=== PATIENT | female | born 1960 | race African-American/Black ===

== ENCOUNTER 2019-05-04 04:51 | Inpatient (IN) | payer OTHER ==
[~2019-05-04] VITALS: Ht 165.1 cm; Wt 103.4 kg
[2019-05-04 05:41] VITALS: BP 120/71
[2019-05-04] MEDS ORDERED: ANESTHESIA TRAY IN PYXIS 1 EA TRAY MC ONE (05:57)
--- NOTE | 2019-05-04 06:15 | NUR ---
RN NOTES 0505 PATIENT CAME FROM ADMITTING AMBULATORY. ALERT AND VERBALLY RESPONSIVE. ASSISTED TO ROOM. ORIENTED TO PHYSICAL SET UP. CONSENT SIGNED; CHECKLIST DONE. V/S TAKEN. G20 INSERTED BY Lilo ACOSTA TO [facility] WITH GOOD BLOOD RETURN. CALL LIGHT WITHIN REACH. 0620 OR TOOK PATIENT BY BED
[2019-05-04] MEDS ORDERED: oxyCODONE IR immediate release 5 MG PO PRN ×2 (06:30)
[2019-05-04] MEDS ORDERED: ACETAMINOPHEN 325 MG TABLET PO PRN ×2 (06:30)
[2019-05-04] MEDS ORDERED: CELECOXIB 100 MG CAPSULE PO SCH ×2 (06:30)
[2019-05-04] MEDS ORDERED: HYDROMORPHONE INJ 2 MG/ML DISP.SYRIN ONE (06:49)
[2019-05-04] MEDS ORDERED: ROCURONIUM BROMIDE 50 MG/5 ML ONE (06:49)
[2019-05-04] MEDS ORDERED: BACITRACIN 50000 UNITS/VIAL ONE (07:21)
[2019-05-04] MEDS ORDERED: FENTANYL PF 100MCG/2ML AMPUL ONE (08:29)
[2019-05-04] MEDS ORDERED: COLACE 250 MG CAPSULE PO PRN (09:00)
[2019-05-04] MEDS ORDERED: TRANEXAMIC ACID 3,000 MG in SODIUM CHLORIDE IRRIG SOLUTION 70 ML IR ONE (09:00)
[2019-05-04] MEDS ORDERED: TYLENOL 650 MG TABLET PO PRN (09:00)
[2019-05-04] MEDS ORDERED: ANCEF 1 G in IV D5W 50 ML IV SCH (09:00)
[2019-05-04] MEDS ORDERED: AMBIEN 5 MG TABLET PO PRN (09:00)
[2019-05-04] MEDS ORDERED: HYDROCODONE/APAP 5/325MG 1 EACH TABLET PO PRN ×2 (09:00)
[2019-05-04] MEDS ORDERED: DULCOLAX 10 MG/SUPP.RECT RC PRN (09:00)
[2019-05-04] MEDS ORDERED: SENOKOT 8.6 MG TABLET PO PRN (09:00)
[2019-05-04] MEDS ORDERED: HYDR-4076 PO (09:43)
[2019-05-04] MEDS ORDERED: ASPI-605 PO (09:43)
[2019-05-04] MEDS: HYDROMORPHONE 1 MG/1 ML DISP.SYRIN IV PRN ×4 (11:13→23:03)
[2019-05-04] MEDS: IV 1/2NS 1000 ML 1,000 ML IV PRN (11:34)
[2019-05-04] MEDS: ANCEF 1 G in IV D5W 50 ML IV SCH ×2 (15:44→23:02)
[2019-05-04 16:00] VITALS: BP 147/71
[2019-05-04] MEDS ORDERED: MAG HYDROX/AL HYDROX/SIMETH 30 ML UDC PO PRN (18:00)
[2019-05-04] MEDS ORDERED: diphenhydrAMINE HCL 25 MG CAPSULE PO PRN (18:00)
[2019-05-04] MEDS ORDERED: ONDANSETRON HCL/PF 4 MG/2 ML VIAL IV PRN (18:00)
[2019-05-04] MEDS ORDERED: CLONIDINE HCL 0.1 MG TABLET PO PRN (18:00)
--- NOTE | 2019-05-04 18:40 | NUR ---
RECEIVED PATIENT POST OP FOR LEFT TOTAL HIP ARTHROPLASTY. PATIENT SLLEPY ON ARRIVAL BUT RESPONSIVE TO VERBAL COMMANDS. VITAL BENY CHECKED UPON ARRIVAL AND Q 15 MINUTES FOR FIRST HOUR, THEN HOURLY. VITAL SIGNS WNL THROUGHOUT. FIRST VITALS UPON ARRIVAL: BP 124/78, HR 87, RR20, TEMP 98.8, SPO2 97%. SURGERY SITE DRESSED, CLEAN AND INTACT. PATIENT FAMILY AT BEDSIDE. NO SOB OR ACUTE DISTRESS NOTED. WILL CONTINUE TO MONITOR.
[2019-05-04] MEDS: DRONABINOL (2.5 MG) 2.5 MG CAPSULE PO SCH (18:49)
--- NOTE | 2019-05-04 19:30 | NUR ---
MS RN NOTE: RECEIVED PT ON BED ASLEEP BUT AROUSES EASILY TO VERBAL AND TACTILE STIMULI. NO APPARENT DISTRESS NOTED. DENIES PAIN AND DISCOMFORT AT THIS TIME. ON ROOM AIR, BREATHING EVEN AND UNLABORED WITH NORMAL RESPIRATIONS. IV ON LEFT ANTECUBITAL #20 INTACT AND PATENT, IVF INFUSING WELL. NO SIGNS/SYMPTOMS OF INFILTRATION NOTED. CALL LIGHT PLACED WITHIN REACH. KEPT CLEAN, DRY AND COMFORTABLE. SAFETY AND FALL PRECAUTIONS OBSERVED AND MAINTAINED. WILL CONTINUE TO MONITOR PT.
--- NOTE | 2019-05-04 19:53 | NUR ---
MS RN CLOSING NOTE PATIENT IN BED SLEEPING. NO SOB OR ACUTE DISTRESS NOTED. PAIN MANAGED WELL THROUGHOUT SHIFT. PATIENT EATING 75% OF MEALS. PAIN MEDICATION GIVEN NEEDED. SURGERY SITE DRESSED, CLEAN AND INTACT. PATIENT FAMILY AT BEDSIDE. IV INTACT AND PATENT INFUSING 0.45% NS @ 100ML/HR. SAFETY MEASURES IN PLACE, CALL LIGHT WITHIN REACH. CARE ENDORDED TO SUPERVISOR SCRAP PREPARATION RN.
[2019-05-04 20:00] VITALS: BP 114/71
[2019-05-04] MEDS: FAMOTIDINE (20 MG) 20 MG TABLET PO SCH (21:04)
[2019-05-05] MEDS: HYDROMORPHONE 1 MG/1 ML DISP.SYRIN IV PRN ×6 (02:08→21:00)
[2019-05-05] MEDS: DRONABINOL (2.5 MG) 2.5 MG CAPSULE PO SCH ×3 (02:09→18:33)
[2019-05-05] MEDS: IV 1/2NS 1000 ML 1,000 ML IV PRN (02:15)
[2019-05-05 04:00] VITALS: BP 107/47
--- NOTE | 2019-05-05 06:30 | NUR ---
MS RN NOTE: NO CHANGES NOTED THROUGHOUT THE SHIFT. NO APPARENT DISTRESS NOTED. COMPLAINED OF 9/10 LEFT HIP PAIN, PRN DILAUDID WAS GIVEN. IV LINE GOT INFILTRATED, REINSERTED A NEW ONE ON LEFT HAND #20, INTACT AND PATENT, IVF INFUSING WELL. PT WAS ABLE TO TRANSFER FROM BED TO BEDSIDE COMMODE WITH MIN ASSIST. KEPT CLEAN, DRY AND COMFORTABLE. SAFETY AND FALL PRECAUTIONS OBSERVED AND MAINTAINED. WILL ENDORSE TO DAY SHIFT RN FOR CONTINUITY OF CARE
[2019-05-05 07:42] LABS: BASOPHILS % (AUTO) 0.2 % (0.0-2.0); EOSINOPHILS % (AUTO) 0.1 % (0.0-6.0); HEMATOCRIT 31 % (33-45); HEMOGLOBIN 10.1 g/dL (11.5-14.8); LYMPHOCYTES # (AUTO) 0.9 /CMM (0.8-4.8); LYMPHOCYTES % (AUTO) 13.4 % (20.0-44.0); MEAN CORPUSCULAR HGB CONC 33 g/dl (31.0-36.0); MEAN CORPUSCULAR VOLUME 86 fL (82-100); MONOCYTES # (AUTO) 0.7 /CMM (0.1-1.30); NEUTROPHILS # (AUTO) 5.2 /CMM (1.8-8.9); NEUTROPHILS % (AUTO) 76.3 % (43.0-81.0); PLATELET COUNT (AUTO) 229 /CMM (150-450); RED BLOOD CELL COUNT(AUTO) 3.58 MIL/uL (4.0-5.2); WHITE BLOOD COUNT (AUTO) 6.8 K/uL (4.3-11.0)
--- NOTE | 2019-05-05 07:54 | NUR ---
MS RN OPENING NOTE RECEIVED PATIENT IN BED AWAKE. A/O X 4, NO SOB OR ACUTE DISTRESS NOTED. PAIN MANAGED WELL THROUGHOUT MEDICAL INSURANCE BILLER. SURGERY SITE DRESSED, CLEAN AND INTACT. PATIENT FAMILY AT BEDSIDE. IV INTACT AND PATENT INFUSING 0.45% NS @ 100ML/HR. SAFETY MEASURES IN PLACE, CALL LIGHT WITHIN REACH. WILL CONTINUE TO MONITOR.
[2019-05-05 08:00] VITALS: BP 91/47
[2019-05-05 08:00] LABS: THYROID STIMULATING HORMONE 2.106 uIU/mL (0.358-3.74)
[2019-05-05 08:04] LABS: CALCIUM, SERUM 8.3 mg/dL (8.5-10.1); CREATININE 0.7 mg/dL (0.6-1.3); MAGNESIUM 1.9 mg/dL (1.8-2.4); PHOSPHORUS 3.2 mg/dL (2.5-4.9); POTASSIUM 2.9 mmol/L (3.5-5.1)
[2019-05-05] MEDS ORDERED: POTASSIUM CHLORIDE 20 MEQ TAB.PRT.SR PO ONE ×2 (08:30→14:00)
[2019-05-05] MEDS: hydrALAZINE HCL 25 MG TABLET PO SCH (09:00)
[2019-05-05] MEDS: RIVAROXABAN 10 MG TABLET PO SCH (09:09)
[2019-05-05] MEDS: DOCUSATE SODIUM 100 MG CAPSULE PO SCH ×2 (09:10→16:24)
[2019-05-05] MEDS: FAMOTIDINE (20 MG) 20 MG TABLET PO SCH ×2 (09:10→20:59)
[2019-05-05 16:00] VITALS: BP 95/68
--- NOTE | 2019-05-05 19:37 | NUR ---
MS RN CLOSING NOTE PATIENT IN BED AWAKE. A/O X 4, NO SOB OR ACUTE DISTRESS NOTED. PAIN MANAGED WELL THROUGHOUT SHIFT. SURGERY SITE DRESSED, CLEAN AND INTACT. ROSA IV INTACT AND PATENT INFUSING 0.45% NS @ 100ML/HR. SAFETY MEASURES IN PLACE, CALL LIGHT WITHIN REACH. CARE ENDORSED TO APPLE SORTER RN. .
[2019-05-05] MEDS: HYDROCODONE/APAP 10/325MG 1 EA TABLET PO PRN (19:46)
[2019-05-05 20:00] VITALS: BP 103/59
[2019-05-06] MEDS: DRONABINOL (2.5 MG) 2.5 MG CAPSULE PO SCH ×2 (02:49→10:23)
[2019-05-06] MEDS: HYDROMORPHONE 1 MG/1 ML DISP.SYRIN IV PRN (03:22)
[2019-05-06 04:00] VITALS: BP 90/51
[2019-05-06 06:31] LABS: BASOPHILS % (AUTO) 0.4 % (0.0-2.0); EOSINOPHILS % (AUTO) 0.6 % (0.0-6.0); HEMATOCRIT 31 % (33-45); LYMPHOCYTES % (AUTO) 13.5 % (20.0-44.0); MEAN CORPUSCULAR HGB CONC 33 g/dl (31.0-36.0); MEAN CORPUSCULAR VOLUME 86 fL (82-100); MONOCYTES # (AUTO) 0.8 /CMM (0.1-1.30); MONOCYTES % (AUTO) 10.4 % (2.0-12.0); NEUTROPHILS # (AUTO) 5.7 /CMM (1.8-8.9); NEUTROPHILS % (AUTO) 75.1 % (43.0-81.0); PLATELET COUNT (AUTO) 220 /CMM (150-450); RED BLOOD CELL COUNT(AUTO) 3.56 MIL/uL (4.0-5.2); WHITE BLOOD COUNT (AUTO) 7.6 K/uL (4.3-11.0)
[2019-05-06 06:54] LABS: CALCIUM, SERUM 8.2 mg/dL (8.5-10.1); CREATININE 0.7 mg/dL (0.6-1.3); POTASSIUM 3.7 mmol/L (3.5-5.1)
--- NOTE | 2019-05-06 07:35 | NUR ---
RN OPENING NOTES RECEIVED PATIENT IN BED SLEEPING COMFORTABLY. EASILY AROUSABLE. PATIENT IS ALERT AND ORIENTED X4. NO PAIN OR ACUTE DISTRESS AT THIS TIME. RESPIRATION EVEN AND UNLABORED. SKIN IS DRY WARM TO TOUCH. PATIENT NOTED WITH LEFT HAND #20G IV ACCESS. INTACT AND PATENT. FLUSHED ORDERED. NO S/S OR INFECTION OR INFILTRATION. SURGERY SITE CLEAN AND INTACT. ALL NEEDS ANTICIPATED. CALL LIGHT WITHIN REACHED. PLAN OF CARE DISCUSSED WITH PATIENT. BED LOCKED AND IN LOWEST POSITION. SAFETY MEASURES IN PLACE. WILL CONTINUE TO MONITOR CLOSELY.
[2019-05-06 08:00] VITALS: BP 114/62
[2019-05-06] MEDS: FAMOTIDINE (20 MG) 20 MG TABLET PO SCH (08:13)
[2019-05-06] MEDS: DOCUSATE SODIUM 100 MG CAPSULE PO SCH (08:13)
[2019-05-06] MEDS: hydrALAZINE HCL 25 MG TABLET PO SCH (08:14)
[2019-05-06] MEDS: RIVAROXABAN 10 MG TABLET PO SCH (08:18)
[2019-05-06] MEDS ORDERED: MAGNESIUM HYDROXIDE 30 ML UDC PO ONE (10:36)
[2019-05-06] MEDS ORDERED: MAGNESIUM HYDROXIDE 30 ML UDC PO PRN (11:00)
[2019-05-06] MEDS: HYDROCODONE/APAP 10/325MG 1 EA TABLET PO PRN (13:33)
[2019-05-06 16:00] VITALS: BP 120/68
--- NOTE | 2019-05-06 17:30 | NUR ---
ASSISTANT DIRECTOR OF FINANCIAL AID NOTES TWO EMT FROM [facility] ARRIVED TO THE UNIT. DISCHARGE PAPERS WAS DISCUSSED, GIVEN AND WAS SIGNED BY PATIENT. PATIENT WAS HELPED TO GET UP AND WAS ABLE TO AMBULATE TO THE [facility]. REPORT WAS GIVEN TO EMT AND TO SHANTE BENITES AT [facility]. PATIENT LEFT THE UNIT IN STABLE CONDITION.
== END 2019-05-06 17:57 | DRG 470 ==
LOC: DS 04:51 → MEDSG1 04:52
PROVIDERS: ADMIT Specialist; ATTEND Student in an Organized Health Care Education/Training Program
PROC: 0SRB0JZ Replacement of Left Hip Joint with Synthetic Substitute, Open Approach (ICD-10-PCS; principal; 2019-05-04)
DX: M16.12 Unilateral primary osteoarthritis, left hip (principal); E66.01 Morbid (severe) obesity due to excess calories; I10 Essential (primary) hypertension; Z68.38 Body mass index [BMI] 38.0-38.9, adult; F12.90 Cannabis use, unspecified, uncomplicated; Z96.651 Presence of right artificial knee joint; Z87.891 Personal history of nicotine dependence
CPT/HCPCS: 36415; 80048-TC; 83735-TC; 84100-TC; 84439-TC; 84443-TC; 85025-TC; 86850-TC; 88305-TC; 88311-TC; 97110-TC; 97116-TC; 97530-TC; A4217; A6209; A6402; G0378; J0360; J0690; J1100; J1170; J1885; J2405; J2704; J2710; J3010; J3490; J7060; Q0163; Q0167